=== PATIENT | male | born 1950 | race Caucasian/White ===

== ENCOUNTER 2018-11-05 15:00 | Inpatient (IN) | payer MEDICARE, OTHER ==
[2018-11-05] MEDS ORDERED: NS 0.9% 1000 ML** 1,000 ML IV ONE ×2 (15:07→15:08)
[2018-11-05] MEDS ORDERED: Diltiazem IV push/loading dose 5 MG/ML 5 ML vial (25 mg) IV SLOW PU ONE (15:08)
[2018-11-05] MEDS ORDERED: Diltiazem IV VIAL* 125 MG in NS 0.9% 100 ML* 100 ML IV ONE (15:09)
--- NOTE | 2018-11-05 15:13 | ED ---
Palpitations / Dysrhythmia - HPI Summary HPI Summary: A 68 y/o male brought in by [facility] ambulance presents to [facility] with a chief complaint of palpitations today. The patient started to have CP during a stress test when he flopped over on the treadmill and went into V-Tach and then atrial fibrillation. The patient has stents and is followed by Dr. Blackmon. He says that he has not had atrial fibrillation before but felt like he has nervousness in (his) chest. - History of Current Complaint Chief Complaint: EDDysrhythmPalp Hx Obtained From: Patient, EMS Onset/Duration: Sudden Onset, Lasting Hours, Still Present Timing: Constant Severity Initially: Mild Severity Currently: Mild Character: Fast, Irregular Aggravating: Nothing Alleviating: Nothing Associated Signs & Symptoms: Chest Pain - Allergy/Home Medications Allergies/Adverse Reactions: Allergies Allergy/AdvReac Type Severity Reaction Status Date / Time shellfish derived Allergy Swelling Verified 11/05/18 15:20 Home Medications: Home Medications Aspirin EC TAB* [Ecotrin EC TAB*] 325 mg PO DAILY 11/05/18 [History Confirmed ] Atorvastatin* [Lipitor*] 10 mg PO BEDTIME 11/05/18 [History Confirmed 11/05/18] Melatonin 5 mg PO BEDTIME PRN 11/05/18 [History Confirmed 11/05/18] Pantoprazole TAB * [Protonix TAB*] 40 mg PO DAILY PRN 11/05/18 [History Confirmed 11/05/18] PMH/Surg Hx/FS Hx/Imm Hx Endocrine/Hematology History: Denies: Hx Diabetes Cardiovascular History: Reports: Hx Angina, Hx Coronary Artery Disease, Hx Hypercholesterolemia, Hx Hypertension, Hx Myocardial Infarction Denies: Hx Valvular Heart Disease Respiratory History: Denies: Hx Asthma, Hx Chronic Obstructive Pulmonary Disease (COPD) Musculoskeletal History: Denies: Hx Rheumatoid Arthritis - CHECKING FOR THIS, Hx Osteoporosis Infectious Disease History: No Infectious Disease History: Denies: Traveled Outside the [place] in Last 30 Days - Family History Known Family History: Negative: Cardiac Disease, Hypertension, Diabetes - Social History Substance Use Type: Reports: None Review of Systems Negative: Fever Positive: Palpitations, Chest Pain All Other Systems Reviewed And Are Negative: Yes Physical Exam - Summary Physical Exam Summary: GENERAL: Patient is a well-developed and nourished M who is lying comfortable in the stretcher. Patient is not in any acute respiratory distress. HEAD AND FACE: Normocephalic EYES: PERRLA, EOMI x 2. EARS: Hearing grossly intact. MOUTH: Oropharynx within normal limits. NECK: Supple, trachea is midline, no adenopathy, no JVD, no carotid bruit. CHEST: Symmetric, no tenderness at palpation LUNGS: Clear to auscultation bilaterally. No wheezing or crackles. CVS: Tachycardic, irregularly irregular rate and rhythm, S1 and S2 present, no murmurs or gallops appreciated. ABDOMEN: Soft, non-tender. Bowel sounds are normal. No abnormal abdominal pulsations. EXTREMITIES: Full ROM in all major joints, no edema, no cyanosis or clubbing. NEURO: Alert and oriented x 3. No acute neurological deficits. Speech is normal and follows commands. SKIN: Dry and warm Triage Information Reviewed: Yes Vital Signs On Initial Exam: Initial Vitals Temp Pulse Resp BP Pulse Ox 96.9 F 170 16 136/97 97 11/05/18 15:04 11/05/18 15:04 11/05/18 15:04 11/05/18 15:04 11/05/18 15:04 Vital Signs Reviewed: Yes Diagnostics - Vital Signs Vital Signs Temp Pulse Resp BP Pulse Ox 11/05/18 15:04 96.9 F 170 16 136/97 97 - Laboratory Result Diagrams: 11/05/18 15:34 11/05/18 15:34 Lab Statement: Any lab studies that have been ordered have been reviewed, and results considered in the medical decision making process. - Radiology CXR Radiology Interpretation Completed By: Radiologist Summary of Radiographic Findings: NO ACTIVE CARDIOPULMONARY DISEASE IS NOTED. ED physician has reviewed this imaging report. - EKG 15:03 Cardiac Rate: Other Rate - Atrial fibrillation with RVR at 170 bpm EKG Rhythm: Atrial Fibrillation Summary of EKG Findings: EKG at 15:03 showed Atrial fibrillation with RVR at 170 bpm, regulated ST-T wave changes. Re-Evaluation - Re-Evaluation First Eval Re-Evaluation Time: 15:23 Change: Unchanged Comment: Pt went back into Atrial fibrillation with RVR. Course/Dx - Course Course Of Treatment: A 68 y/o male brought in by [facility] ambulance presents to [facility] with a chief complaint of palpitations today. The patient started to have CP during a stress test when he flopped over on the treadmill and went into V- Tach and then atrial fibrillation. The physical exam revealed that he was tachycardic with an irregularly irregular rate and rhythm. EKG at 15:03 showed Atrial fibrillation with RVR at 170 bpm, regulated ST-T wave changes. CXR impression: NO ACTIVE CARDIOPULMONARY DISEASE IS NOTED. In the ED course the patient was given Diltiazem IV and sodium chloride IV. Blood work and chemistries obtained. Lactic acid of 2.1 at 15:34. The patient will be admitted. Case discussed with hospitalist, Dr. Smallwood. I discussed results with patient. The patient agrees with this plan. - Diagnoses Provider Diagnoses: Atrial fibrillation with RVR - Physician Notifications Discussed Care Of Patient With: Meredith Smallwood Time Discussed With Above Provider: 15:16 Instructed by Provider To: Admit As Inpatient - Critical Care Time Critical Care Time: 30-74 min Discharge - Sign-Out/Discharge Documenting (check all that apply): Patient Departure - admit Patient Received Moderate/Deep Sedation with Procedure: No - Discharge Plan Condition: Fair Disposition: ADMITTED TO [facility] - Billing Disposition and Condition Condition: FAIR Disposition: Admitted to [facility] - Attestation Statements Document Initiated by Scribe: Yes Documenting Scribe: Familia Pires Provider For Whom Charlotte is Documenting (Include Credential): Yuniel Farooq MD Scribe Attestation: IFamilia, scribed for Yuniel Farooq MD on 11/05/18 at 1756. Scribe Documentation Reviewed: Yes Provider Attestation: The documentation as recorded by the Familia arzola accurately reflects the service I personally performed and the decisions made by me, Ekta Farooq MD Status of Scribe Document: Viewed
[2018-11-05 15:44] LABS: ABS Eosinophils 0.3 10^3/ul (0-0.6); ABS Lymphocytes 1.8 10^3/ul (1.0-4.8); ABS Neutrophils 5.7 10^3/ul (1.5-7.7); Eosinophil % 3.5 %; Hematocrit 36 % (42-52); Lymphocyte % 20.7 %; Mean Corpuscular HGB Conc 33 g/dL (31-36); Mean Corpuscular Hemoglobin 32 pg (27-31); Mean Corpuscular Volume 96 fL (80-94); Mean Platelet Volume 8.6 fL (7.4-10.4); Nucleated Red Blood Cells % 0.1; Platelet Count 191 10^3/uL (150-450); Red Blood Count 3.73 10^6 /uL (4.18-5.48); Red Cell Distribution Width 13 % (10-15); White Blood Count 8.9 10^3/uL (3.5-10.8)
[2018-11-05 15:52] LABS: Activated Partial Thrombo Time 31.5 seconds (26.0-38.0); INR 1.09 (0.82-1.09)
[2018-11-05] MEDS ORDERED: Diltiazem IV BAG* D5W Premix 125 MG/125 ML BAG IV ONE (15:56)
[2018-11-05 16:04] LABS: ALT 15 U/L (7-52); AST 24 U/L (13-39); Albumin/Globulin Ratio 1.1 (1-3); Alkaline Phosphatase 59 U/L (34-104); Anion Gap 8 mmol/L (2-11); BUN/Creatinine Ratio 20.3 (8-20); Blood Urea Nitrogen 16 mg/dL (6-24); CO2 Carbon Dioxide 25 mmol/L (22-32); Calcium 8.9 mg/dL (8.6-10.3); Chloride 107 mmol/L (101-111); EGFR African American 117.7 (>60); EGFR Non-African American 97.2 (>60); Globulin 3.7 g/dL (2-4); Glucose 104 mg/dL (70-100); Potassium 4.1 mmol/L (3.5-5.0); Sodium 140 mmol/L (135-145); Total Protein 7.7 g/dL (6.4-8.9)
[2018-11-05] MEDS ORDERED: Metoprolol Tartrate TAB* 25 MG PO ONE (17:11)
[2018-11-05] MEDS ORDERED: Acetaminophen TAB* 325 MG PO PRN (17:14)
[2018-11-05] MEDS ORDERED: Heparin DRIP 25,000 UNITS(*) 25,000 UNITS/500 ML BAG IV SCH (17:30)
[2018-11-05] MEDS ORDERED: Potassium Chlor TAB* 10 MEQ TAB.ER PO ONE (17:41)
[2018-11-05] MEDS ORDERED: Pantoprazole TAB * 40 MG TAB PO PRN (17:52)
[2018-11-05] MEDS ORDERED: Melatonin 3 MG TAB PO PRN (17:52)
[2018-11-05] MEDS ORDERED: Heparin VIAL(*) 5000 UNITS/ML VIAL (FIVE THOUSAND) IV SCH (18:00)
--- NOTE | 2018-11-05 18:25 | HP ---
HISTORY AND PHYSICAL: ADDENDUM: FAMILY HISTORY: Father had multiple MIs. Paternal grandfather at the age of 60, unsure of cause of . Mother is from either [place] or [place]. Maternal grandfather had cancer. Maternal grandmother had diabetes. SOCIAL HISTORY: The patient does not smoke, he never has. He drinks 6 to 10 alcoholic beverages per week. He admits to occasional marijuana use. He is retired from [employer]. In his spare time, he likes to golf, travel, and hike. He is , with 3 children. He lives at home with his . In the event that he is unable to make his own medical decisions, he has appointed his , Monica Vann, to be his surrogate decision maker. REVIEW OF SYSTEMS: A 10-point review of systems has been performed and all the pertinent positives and negatives are in the HPI. All other systems are negative. PHYSICAL EXAMINATION GENERAL: Mr. Vann is a well-developed, well-nourished, healthy-appearing 68 - year-old male, who is sitting up in bed. He is in no acute distress. He is soft- spoken, cooperative, appropriate. VITAL SIGNS: Temperature 96.9 temporal, heart rate 145, respiratory rate 23, oxygen saturation 95% on room air, blood pressure 137/89. HEENT: Visual erickson grossly intact. PERRL. EOMI. Nonicteric sclerae. Hearing grossly intact. Oral mucous membranes are moist. There are no lesions. RESPIRATORY: Symmetrical chest expansion without use of accessory muscles. Lungs clear to auscultation bilaterally without rhonchi, wheezes, or rales. There is no digital clubbing or cyanosis. CARDIOVASCULAR: Tachycardic, irregular rhythm. S1, S2 present without murmurs , rubs, or gallops. There is no JVD. There is no peripheral edema. Radial and pedal pulses are palpable. ABDOMEN: Bowel sounds noted in all quadrants. The abdomen is soft without tenderness to palpation. MUSCULOSKELETAL: Full range of motion without pain or deformities. NEURO: The patient is awake. He is alert and oriented x3. Cranial nerves grossly intact. He is able to move all of his extremities with motor strength of 5/5 in the upper and lower extremities bilaterally. DIAGNOSTIC STUDIES/LAB DATA: HGB 12, HCT 36, MCV 96. Glucose 104, lactic acid 2.1, magnesium 2.0. Troponin 0.00. ECG: Possible atrial fibrillation, rate of 170, ventricular tachycardia. Chest x-ray, impression: No active cardiopulmonary disease is noted. ASSESSMENT AND PLAN: Mr. Vann is a 68-year-old male with a past medical history of coronary artery disease with stenting in 2011, angina, hypertension, hyperlipidemia, who presented to the ER today after an abnormal stress test and arrhythmia. The patient will be admitted inpatient for: 1. Stress test with ischemic changes. The patient is here from Dr. Blackmon's office after a stress test revealed 2 to [address] depressions inferolaterally. After stress test was completed, he went into atrial fibrillation with rapid ventricular response. Dr. Nagel has been consulted and plans for catheterization in the afternoon. He will be n.p.o. after breakfast. Cardiology has been consulted, Dr. Estes notified. We will continue serial troponins. Heparin drip has been ordered. The patient will remain on diltiazem drip, which will be titrated to heart rate. The patient has been given Lopressor p.o. 25 now and we will continue Lopressor p.o. 25 b.i.d. in hopes of titrating off diltiazem shortly. 2. Arrhythmia. The patient has EKG changes suggestive of atrial fibrillation with ventricular tachycardia. The patient has received diltiazem IV 15, which has decreased his heart rate some, but he remains tachycardic. We will continue diltiazem drip. Lopressor 25 has been given now. Continue to monitor for need for additional rate controlling agents. 3. Coronary artery disease. Continue aspirin 325 p.o. daily. Plan for cardiac catheterization tomorrow. 4. Hyperlipidemia. Continue atorvastatin. 5. FEN: Heart-healthy diet until breakfast, n.p.o. after breakfast. 6. DVT prophylaxis: According to the DVT Risk Assessment, the patient scores 2 , placing him at moderate risk. He will be started on heparin drip. 7. Code status: Full code. TIME SPENT: Approximately 60 minutes was spent on this admission, greater than half that time was spent with the patient obtaining history, performing physical , and reviewing the plan of care. The case has been reviewed with my attending, Dr. Ernst, who is in agreement with the plan of care. JAY LARIOS, SHIRA [id number]/[facility] #: [id number] [facility]URN MEDICAL CENTERDarío
--- NOTE | 2018-11-05 18:41 | HP ---
CONTINUATION ADDENDUM NOW INCLUDED ON THIS REPORT HISTORY AND PHYSICAL: DATE OF ADMISSION: 11/05/18 PRIMARY CARE PROVIDER: Dr. Borrego. PROVIDER RELATIONS MANAGER: Dr. Blackmon. ATTENDING PHYSICIAN: Dr. Ernst * (dictated by SHIRA Castillo). CHIEF COMPLAINT: "I went to my education faculty member for a stress test and failed." HISTORY OF PRESENT ILLNESS: The patient is a 68-year-old male with a past medical history of CAD with stenting in 2011, hypertension, hyperlipidemia, mitral regurgitation who presented today at the suggestion of his education faculty member, Dr. Blackmon after he developed ventricular tachycardia after stress testing today. Stress testing revealed 2 to [address] depressions inferolaterally. The patient notes that he was on the treadmill during his stress test and he felt okay. He was then laid down on the table after his stress test and he started to have palpitations. He notes that they lasted less than 10 minutes, but then he had a flutter/nervous feeling in his chest for the following hour. Cardiology reports wide complex tachycardia suggestive of rapid ventricular tachycardia after stress test was done. His stress test showed stress-induced changes with ischemic EKG changes, ventricular fibrillation, atrial fibrillation. The patient denies chest pain, diaphoresis, or shortness of breath at that time. He denies recent history of lower extremity edema. The patient admits to some lightheadedness after the stress test, but denies dizziness, presyncope/syncope. He notes that he has had an upper respiratory infection with fevers and diaphoresis for approximately 2 months, but it has been improving over the last 1 month and he has had no recent fevers. He admits to diarrhea for approximately 1 month. He describes his stools as loose without hematochezia with occasional dark stools. He notes that he has loose stools 1 to 3 times per day. He denies abdominal pain, nausea , vomiting. He denies headache or vision changes. While in the emergency department, the patient received a full workup, which included lab work revealing a macrocytic anemia, a slight lactic acidosis, and troponin of 0.00. EKG shows possible AFib, ventricular tachycardia, rate of 170. Chest x-ray without gross abnormalities. The patient was given 15 mg IV diltiazem push. He was then started on diltiazem drip, which is continued at admission. He was also given 2 L normal saline bolus. The hospitalist team was asked to evaluate the patient for admission. PAST MEDICAL HISTORY: 1. Coronary artery disease with stent x1 in 2011. 2. Hypertension. 3. Hyperlipidemia. 4. Angina. 5. Mitral regurgitation. PAST SURGICAL HISTORY: 1. The patient had both knees x2. 2. Sinus surgery. 3. Basal cell carcinoma removed from chest, right arm, left ear. HOME MEDICATIONS: 1. Aspirin 325 mg p.o. daily. 2. Atorvastatin 10 mg p.o. at bedtime. 3. Melatonin 5 mg p.o. at bedtime p.r.n. sleep. 4. Pantoprazole 40 mg p.o. daily p.r.n. indigestion. DRUG ALLERGIES: SHELLFISH, swelling. CONTINUATION ADDENDUM: FAMILY HISTORY: Father had multiple MIs. Paternal grandfather at the age of 60, unsure of cause of . Mother is from either [place] or [place]. Maternal grandfather had cancer. Maternal grandmother had diabetes. SOCIAL HISTORY: The patient does not smoke, he never has. He drinks 6 to 10 alcoholic beverages per week. He admits to occasional marijuana use. He is retired from [employer]. In his spare time, he likes to golf, travel, and hike. He is , with 3 children. He lives at home with his . In the event that he is unable to make his own medical decisions, he has appointed his , Monica Vann, to be his surrogate decision maker. REVIEW OF SYSTEMS: A 10-point review of systems has been performed and all the pertinent positives and negatives are in the HPI. All other systems are negative. PHYSICAL EXAMINATION GENERAL: Mr. Vann is a well-developed, well-nourished, healthy-appearing 68 - year-old male, who is sitting up in bed. He is in no acute distress. He is soft- spoken, cooperative, appropriate. VITAL SIGNS: Temperature 96.9 temporal, heart rate 145, respiratory rate 23, oxygen saturation 95% on room air, blood pressure 137/89. HEENT: Visual erickson grossly intact. PERRL. EOMI. Nonicteric sclerae. Hearing grossly intact. Oral mucous membranes are moist. There are no lesions. RESPIRATORY: Symmetrical chest expansion without use of accessory muscles. Lungs clear to auscultation bilaterally without rhonchi, wheezes, or rales. There is no digital clubbing or cyanosis. CARDIOVASCULAR: Tachycardic, irregular rhythm. S1, S2 present without murmurs , rubs, or gallops. There is no JVD. There is no peripheral edema. Radial and pedal pulses are palpable. ABDOMEN: Bowel sounds noted in all quadrants. The abdomen is soft without tenderness to palpation. MUSCULOSKELETAL: Full range of motion without pain or deformities. NEURO: The patient is awake. He is alert and oriented x3. Cranial nerves grossly intact. He is able to move all of his extremities with motor strength of 5/5 in the upper and lower extremities bilaterally. DIAGNOSTIC STUDIES/LAB DATA: HGB 12, HCT 36, MCV 96. Glucose 104, lactic acid 2.1, magnesium 2.0. Troponin 0.00. ECG: Possible atrial fibrillation, rate of 170, ventricular tachycardia. Chest x-ray, impression: No active cardiopulmonary disease is noted. ASSESSMENT AND PLAN: Mr. Vann is a 68-year-old male with a past medical history of coronary artery disease with stenting in 2011, angina, hypertension, hyperlipidemia, who presented to the ER today after an abnormal stress test and arrhythmia. The patient will be admitted inpatient for: 1. Stress test with ischemic changes. The patient is here from Dr. Blackmon's office after a stress test revealed 2 to [address] depressions inferolaterally. After stress test was completed, he went into atrial fibrillation with rapid ventricular response. Dr. Nagel has been consulted and plans for catheterization in the afternoon. He will be n.p.o. after breakfast. Cardiology has been consulted, Dr. Estes notified. We will continue serial troponins. Heparin drip has been ordered. The patient will remain on diltiazem drip, which will be titrated to heart rate. The patient has been given Lopressor p.o. 25 now and we will continue Lopressor p.o. 25 b.i.d. in hopes of titrating off diltiazem shortly. 2. Arrhythmia. The patient has EKG changes suggestive of atrial fibrillation with ventricular tachycardia. The patient has received diltiazem IV 15, which has decreased his heart rate some, but he remains tachycardic. We will continue diltiazem drip. Lopressor 25 has been given now. Continue to monitor for need for additional rate controlling agents. 3. Coronary artery disease. Continue aspirin 325 p.o. daily. Plan for cardiac catheterization tomorrow. 4. Hyperlipidemia. Continue atorvastatin. 5. FEN: Heart-healthy diet until breakfast, n.p.o. after breakfast. 6. DVT prophylaxis: According to the DVT Risk Assessment, the patient scores 2 , placing him at moderate risk. He will be started on heparin drip. 7. Code status: Full code. TIME SPENT: Approximately 60 minutes was spent on this admission, greater than half that time was spent with the patient obtaining history, performing physical , and reviewing the plan of care. The case has been reviewed with my attending, Dr. Ernst, who is in agreement with the plan of care. SHIRA HORNE [id number]/[facility] #: [id number]/[facility] #: [id number] [place]
[2018-11-05] MEDS ORDERED: Diltiazem IV BAG* D5W Premix 125 MG/125 ML BAG IV SCH (19:00)
[2018-11-05 19:12] LABS: % Iron Saturation 25 % (15-55); Iron 86 ug/dL (50-212); Total Iron Binding Capacity 346 mcg/dL (250-450); Transferrin 247 mg/dL (203-362)
[2018-11-05 19:32] LABS: Ferritin 103.2 ng/mL (24-336)
[2018-11-05 19:34] LABS: Troponin I 0.01 ng/mL (<0.04)
[2018-11-05 19:36] LABS: EGFR African American 133.1 (>60)
[2018-11-05 19:36] LABS: Folate > 20.00 ng/mL (>3.99)
[2018-11-05] MEDS: Atorvastatin* 10 MG TAB PO SCH (20:27)
[2018-11-05 20:56] LABS: TSH (Thyroid Stimulating Horm) 2.44 mcIU/mL (0.34-5.60)
--- NOTE | 2018-11-05 21:52 | CONS ---
CC: Dr. David Borrego; Dr. Hal Blackmon * CARDIOLOGY CONSULTATION: DATE OF CONSULT: 11/05/18 HOSPITALIST: Dr. David Borrego. REASON FOR CONSULT: Ventricular tachycardia. CHIEF COMPLAINT: The patient's chief complaint has been diarrhea and according to his , greater than usual fatigue golfing. HISTORY OF PRESENT ILLNESS: Mr. Vann is a very nice 68-year-old gentleman with known atherosclerotic heart disease, followed by Dr. Hal Blackmon. The patient had been seen for routine appointment in September of this year and at that time, he had a PVC and some nonspecific T-wave changes and a stress echo was ordered, which was scheduled for today. The patient underwent stress testing today, felt well, was able to walk 8 minutes on a standard Dejan protocol achieving 10 METs of workload. He did not have chest pain, but was winded. With testing, he developed significant ST changes and while lying down, he developed a run of monomorphic ventricular tachycardia, 220 beats a minute. The patient tells me that while he was on the treadmill, he felt fine, but while lying down with the VT he felt marked thumping in the chest. When he went out of the ventricular tachycardia, he was in atrial fibrillation with a rapid ventricular response. Dr. Blackmon reported that the postexercise images with V/AFib showed akinesis and dyskinesis of the septum and hypokinesis of the anterior wall and his PA pressure in recovery was elevated to 70 mmHg. Currently when I saw the patient, in the presence of his , he is in atrial fibrillation and aware of the flip-flopping in the heart and this is similar to symptoms he had prior to his stent in the past, but has not had them in several years. The patient denies chest pain, orthopnea, PND, neck, arm, jaw pain currently. PAST MEDICAL HISTORY: The patient has a past medical history of: 1. Coronary artery disease (cardiac catheterization in March 2012 showed 60 % to 70% LAD occlusion for which he underwent stenting, 20% to 30% occlusion in the PDA of the circumflex, and a 30% occlusion of the right coronary artery). 2. Mitral insufficiency. 3. Dyslipidemia. 4. Reflux. 5. Recent lower respiratory illness requiring antibiotics. PAST SURGICAL HISTORY: Includes knee surgery and Mohs procedure. MEDICATIONS: Outpatient medications at the time of admission included: 1. Melatonin 5 mg p.r.n. 2. Atorvastatin 10 mg q.h.s. 3. Protonix 40 mg a day. 4. Aspirin 162 mg a day. Recently discontinued medications include: Augmentin. ALLERGIES: He has no known drug allergies, but is allergic to [employer]ODUCTS. FAMILY HISTORY: Positive for heart disease in his father's side of the family. SOCIAL HISTORY: The patient is with supportive . He never smoked. Occasional alcohol. No history of recreational drug use. Golfs and exercises regularly. REVIEW OF SYSTEMS: A 10-point review of systems was done. It is significant for developing an upper respiratory tract infection in August when he was traveling. By September, it settled into his chest where he was coughing thick purulent sputum and was treated with Augmentin. He states this is better. He felt very wiped out with his illness, but he is now left with diarrhea. He had some knee problems this week and did take several nonsteroidal pills earlier this week. With negative orthopnea, PND, his said he comes home from golf feeling much more tired than he had in the past. All other review of systems is negative. He denies ever having had the thumping in his heart that he felt was a V-tach and he does not think he has had fluttering sensation he feels with the AFib since his stent in 2011. Review of systems was positive for snoring and apnea symptoms based on his 's history, although the patient denies awareness of this. PHYSICAL EXAM: The patient is 6 feet 3 inches, weighs 185 pounds with a BMI of 23. Vital Signs: Blood pressure 125/63, he was in AFib with a ventricular rate of 125 beats a minute, respiratory rate is 25, he is afebrile. General Appearance: Lean, fit- appearing, somewhat older gentleman, lying at 40 degrees, his was present for most of the exam and he is in no distress, chatting normally. Psychologically, pleasant and cooperative. Neurologically, awake, alert, oriented to person, place, and time. Grossly normal sensory and motor function in the upper and lower extremities on bed exam. Skin: Warm, dry, bronson. No appreciable cyanosis or rashes. HEENT: Pupils are equal and round. Mucous membranes are moist. Neck without increased JVP or thyromegaly. Good carotid pulses without audible bruits. Breath sounds were clear. Good effort. No wheezes, rales, or rhonchi. Coronary: S1, S2. Irregularly irregular without appreciable murmurs. Abdomen: Flat, nontender. No hepatomegaly. Lower extremities were free of edema and warm. DIAGNOSTIC STUDIES/LAB DATA: Stress echo from today reviewed personally and Dr. Blackmon's report is reviewed, 3+ mm horizontal ST depression with walking, monomorphic ventricular tachycardia in early recovery followed by AFib and persistent ST changes. I have not seen the echo portions, but anterior apical wall abnormality post exercise was described and elevation in PA pressure to 70 mmHg is described. 12-lead ECG in the emergency room showed atrial fibrillation with a ventricular rate of 170 beats a minute, QRS axis +60, normal intraventricular conduction times, [address] depression in the inferior lateral leads. Chest x-ray showed no active pulmonary disease. Labs showed white count 8.9, hematocrit 36, mean cell volume 96, platelets 191, mild increase in monos. INR 1.09, PTT 31.5. Sodium 140, potassium 4.1, chloride 107, bicarb 25, BUN 16, creatinine 0.79, glucose 104, lactic acid 2.1, magnesium 2.0. Normal transaminases. Troponin #1 0.00. BNP 153. Lipids from 11/06/17 showed total cholesterol 131, triglycerides 87, HDL cholesterol 47, LDL cholesterol 66. Echocardiogram from 11/05/17 showed an ejection fraction of 55% to 60% with abnormal diastolic filling, left atrial enlargement, aortic valve sclerosis with trace insufficiency, [id number] mitral insufficiency, [id number] tricuspid insufficiency, mild dilatation of the ascending aorta. IMPRESSION: In summary, Nikolas Vann is a very nice 68-year-old gentleman, who underwent a treadmill stress test today complicated by long run of monomorphic ventricular tachycardia while stepping off the treadmill followed by atrial fibrillation. His stress test was suggestive of ischemia prior to the ventricular tachycardia with significant ST depression and he had anterior apical wall motion abnormalities, in atrial fibrillation post ventricular tachycardia and exercise. For the patient's abnormal stress test including ventricular tachycardia, the recommendation is to undergo cardiac catheterization, which is my understanding will be done in the morning. For the patient's atrial fibrillation, he continues to go in and out of atrial fibrillation in the emergency room and he has a CHADS score of 1 (hypertension) , I am recommending a heparin drip in the short term. I want to give beta na orally to try to rate control as this will also help with ventricular tachycardia and a diltiazem drip, which will be titrated to his rate. I would like to give him metoprolol as possible as little diltiazem as possible. I am giving him extra potassium in case this decreases his ventricular ectopy and helps him maintain sinus rhythm, as when I was examining him, he had gone in and out of sinus rhythm approximately 4 times. For followup of items in review of systems, with the patient having diarrhea post Augmentin, it could potentially have caused Clostridium difficile or another overgrowth, although I think this should be looked into and we will defer to the hospitalist on how to manage, but it could put him at risk for electrolyte disturbances and dysrhythmias. For the patient's arthritic pain, I think for now, he needs to avoid any nonsteroidals as this can lead to fluid retention, increased blood pressure, increased MR and PA pressures in addition to promotion of atherosclerotic plaque. We will look into his mild macrocytic anemia to ensure it is not a marker of another underlying process. Further recommendations will be made pending the results of his cardiac catheterization. Thank you for allowing me to assist in this nice gentleman's care. [id number]/[facility] #: [id number] [place]
[2018-11-06 05:17] LABS: ABS Eosinophils 0.4 10^3/ul (0-0.6); ABS Lymphocytes 2.2 10^3/ul (1.0-4.8); ABS Neutrophils 4.2 10^3/ul (1.5-7.7); Eosinophil % 4.9 %; Hematocrit 31 % (42-52); Hemoglobin 10.7 g/dL (14.0-18.0); Lymphocyte % 28.5 %; Mean Corpuscular HGB Conc 35 g/dL (31-36); Mean Corpuscular Hemoglobin 33 pg (27-31); Mean Corpuscular Volume 95 fL (80-94); Nucleated Red Blood Cells % 0.1; Platelet Count 196 10^3/uL (150-450); Red Blood Count 3.24 10^6 /uL (4.18-5.48); Red Cell Distribution Width 14 % (10-15); White Blood Count 7.8 10^3/uL (3.5-10.8)
[2018-11-06 05:32] LABS: Calcium 8.4 mg/dL (8.6-10.3); EGFR African American 112.7 (>60); EGFR Non-African American 93.2 (>60); Potassium 3.7 mmol/L (3.5-5.0)
[2018-11-06] MEDS ORDERED: Potassium Chlor TAB* 20 MEQ TAB.ER PO ONE (08:29)
[2018-11-06] MEDS ORDERED: Metoprolol Tartrate TAB* 25 MG PO SCH (09:00)
[2018-11-06] MEDS: Aspirin EC TAB* 325 MG PO SCH (09:13)
--- NOTE | 2018-11-06 09:32 | PN ---
<Meagan Rolon - Last Filed: 11/06/18 09:27> Subjective Date of Service: 11/06/18 - abnormal stress echo, NSVT, PAF with RVR Interval History: Patient was admitted from our office yesterday after undergoing stress echo which per report patient had 2-3mm horizontal ST depressions inferolaterally. Immediate after stopping exercise4 and laying down for stress echo imaging he developed wide complex VT, he converted after 10-20 seconds to AF with RVR and persistant ST depression. echo imaging revealed LVEF after exercise 45%, akinesis dyskinesis of septum and hypokinesis of the anterior wall. He denies chest pain, has not had a sensation of heart racing or irregularity since yesterday Medications Active Medications: Acetaminophen (Tylenol Tab*) 650 mg PO Q4H PRN PRN Reason: FEVER/PAIN Aspirin (Ecotrin Ec Tab*) 325 mg PO DAILY [facility] Last Admin: 11/06/18 09:13 Dose: 325 mg Atorvastatin Calcium (Lipitor*) 10 mg PO BEDTIME ANYA Last Admin: 11/05/18 20:27 Dose: 10 mg Heparin Sodium (Porcine) (Heparin Vial(*)) 0 units IV .PER PROTOCOL ANYA Heparin Sodium/Dextrose (Heparin Drip 25,000 Units(*)) 25,000 units in 500 mls @ 0 mls/hr IV PER RATE ANYA; Protocol Stop: 11/06/18 12:00 Diltiazem/Dextrose (Cardizem Iv D5w Bag* Premix) 125 mg in 125 mls @ 10 mls/hr IV .INITIAL RATE ANYA; Protocol Sodium Chloride (Ns 0.9% 1000 Ml) 1,000 mls @ 100 mls/hr IV .per rate ANYA Melatonin (Melatonin) 3 mg PO BEDTIME PRN PRN Reason: SLEEP Last Admin: 11/06/18 01:01 Dose: 3 mg Metoprolol Tartrate (Lopressor Tab*) 25 mg PO BID ANYA Last Admin: 11/06/18 09:13 Dose: 25 mg Pantoprazole Sodium (Protonix Tab*) 40 mg PO DAILY PRN PRN Reason: HEARTBURN Objective Vital Signs: Temp Pulse Resp BP Pulse Ox 97.8 F 67 18 134/70 97 11/06/18 07:23 11/06/18 09:00 11/06/18 09:00 11/06/18 09:00 11/06/18 09:00 Oxygen Devices in Use Now: None Appearance: Lying in bed, A+O x3 Ears/Nose/Mouth/Throat: NL Teeth, Lips, Gums, Clear Oropharnyx, Mucous Membranes Moist Neck: NL Appearance and Movements; NL JVP Respiratory: Symmetrical Chest Expansion and Respiratory Effort Cardiovascular: NL Sounds; No Murmurs; No JVD, No Edema Abdominal: NL Sounds; No Tenderness; No Distention Extremities: No Edema Neurological: Alert and Oriented x 3 Lines/Tubes/Other Access: Clean, Dry and Intact Peripheral IV Laboratory Results: 11/06/18 05:05 11/06/18 05:05 INR (Anticoag Therapy) 1.09 (0.82-1.09) 11/05/18 15:34 APTT 53.3 seconds (26.0-38.0) H 11/06/18 07:05 Total Bilirubin 0.50 mg/dL (0.2-1.0) 11/05/18 15:34 AST 24 U/L (13-39) 11/05/18 15:34 ALT 15 U/L (7-52) 11/05/18 15:34 Alkaline Phosphatase 59 U/L (34-104) 11/05/18 15:34 B-Natriuretic Peptide 153 pg/mL (<=100) H 11/05/18 15:34 Total Protein 7.7 g/dL (6.4-8.9) 11/05/18 15:34 Albumin 4.0 g/dL (3.2-5.2) 11/05/18 15:34 Globulin 3.7 g/dL (2-4) 11/05/18 15:34 Albumin/Globulin Ratio 1.1 (1-3) 11/05/18 15:34 Triglycerides 74 mg/dL 11/06/18 05:05 Cholesterol 105 mg/dL 11/06/18 05:05 LDL Cholesterol 53 mg/dL 11/06/18 05:05 HDL Cholesterol 37.0 mg/dL 11/06/18 05:05 TSH 2.44 mcIU/mL (0.34-5.60) 11/05/18 15:34 11/05/18 11/05/18 11/05/18 15:34 18:56 21:43 Troponin I 0.00 0.01 0.02 Laboratory Results - last hr 11/05/18 11/05/18 11/05/18 15:34 15:34 15:34 WBC 8.9 RBC 3.73 L Hgb 12.0 L Hct 36 L MCV 96 H MCH 32 H MCHC 33 RDW 13 Plt Count 191 MPV 8.6 Neut % (Auto) 64.6 Lymph % (Auto) 20.7 Dyer % (Auto) 10.9 Eos % (Auto) 3.5 Baso % (Auto) 0.3 Absolute Neuts (auto) 5.7 Absolute Lymphs (auto) 1.8 Absolute Monos (auto) 1.0 H Absolute Eos (auto) 0.3 Absolute Basos (auto) 0.0 Absolute Nucleated RBC 0.0 Nucleated RBC % 0.1 INR (Anticoag Therapy) 1.09 APTT 31.5 Sodium 140 Potassium 4.1 Chloride 107 Carbon Dioxide 25 Anion Gap 8 BUN 16 Creatinine 0.79 Est GFR ( Amer) 117.7 Est GFR (Non-Af Amer) 97.2 BUN/Creatinine Ratio 20.3 H Glucose 104 H Hemoglobin A1c Lactic Acid Calcium 8.9 Magnesium 2.0 Iron 86 TIBC 346 % Saturation 25 Unsat Iron Binding < 331 Transferrin 247 Ferritin 103.2 Total Bilirubin 0.50 AST 24 ALT 15 Alkaline Phosphatase 59 Troponin I 0.00 B-Natriuretic Peptide Total Protein 7.7 Albumin 4.0 Globulin 3.7 Albumin/Globulin Ratio 1.1 Triglycerides Cholesterol LDL Cholesterol HDL Cholesterol Vitamin B12 249 Folate > 20.00 TSH 2.44 11/05/18 11/05/18 11/05/18 15:34 15:34 18:56 WBC RBC Hgb Hct MCV MCH MCHC RDW Plt Count MPV Neut % (Auto) Lymph % (Auto) Dyer % (Auto) Eos % (Auto) Baso % (Auto) Absolute Neuts (auto) Absolute Lymphs (auto) Absolute Monos (auto) Absolute Eos (auto) Absolute Basos (auto) Absolute Nucleated RBC Nucleated RBC % INR (Anticoag Therapy) APTT Sodium Potassium Chloride Carbon Dioxide Anion Gap BUN 12 Creatinine 0.71 Est GFR ( Amer) 133.1 Est GFR (Non-Af Amer) 110.0 BUN/Creatinine Ratio Glucose Hemoglobin A1c Lactic Acid 2.1 H* Calcium Magnesium Iron TIBC % Saturation Unsat Iron Binding Transferrin Ferritin Total Bilirubin AST ALT Alkaline Phosphatase Troponin I 0.01 B-Natriuretic Peptide 153 H Total Protein Albumin Globulin Albumin/Globulin Ratio Triglycerides Cholesterol LDL Cholesterol HDL Cholesterol Vitamin B12 Folate TSH 11/05/18 11/05/18 11/06/18 18:56 21:43 01:00 WBC RBC Hgb Hct MCV MCH MCHC RDW Plt Count MPV Neut % (Auto) Lymph % (Auto) Dyer % (Auto) Eos % (Auto) Baso % (Auto) Absolute Neuts (auto) Absolute Lymphs (auto) Absolute Monos (auto) Absolute Eos (auto) Absolute Basos (auto) Absolute Nucleated RBC Nucleated RBC % INR (Anticoag Therapy) APTT 29.9 61.1 H Sodium Potassium Chloride Carbon Dioxide Anion Gap BUN Creatinine Est GFR ( Amer) Est GFR (Non-Af Amer) BUN/Creatinine Ratio Glucose Hemoglobin A1c Lactic Acid Calcium Magnesium Iron TIBC % Saturation Unsat Iron Binding Transferrin Ferritin Total Bilirubin AST ALT Alkaline Phosphatase Troponin I 0.02 B-Natriuretic Peptide Total Protein Albumin Globulin Albumin/Globulin Ratio Triglycerides Cholesterol LDL Cholesterol HDL Cholesterol Vitamin B12 Folate [facility] 11/06/18 11/06/18 11/06/18 05:05 05:05 05:05 WBC 7.8 RBC 3.24 L Hgb 10.7 L Hct 31 L MCV 95 H MCH 33 H MCHC 35 RDW 14 Plt Count 196 MPV 9.0 Neut % (Auto) 53.5 Lymph % (Auto) 28.5 Dyer % (Auto) 12.6 Eos % (Auto) 4.9 Baso % (Auto) 0.5 Absolute Neuts (auto) 4.2 Absolute Lymphs (auto) 2.2 Absolute Monos (auto) 1.0 H Absolute Eos (auto) 0.4 Absolute Basos (auto) 0.0 Absolute Nucleated RBC 0.0 Nucleated RBC % 0.1 INR (Anticoag Therapy) APTT Sodium 139 Potassium 3.7 Chloride 108 Carbon Dioxide 27 Anion Gap 4 BUN 18 Creatinine 0.82 Est GFR ( Amer) 112.7 Est GFR (Non-Af Amer) 93.2 BUN/Creatinine Ratio 22.0 H Glucose 108 H Hemoglobin A1c 6.0 H Lactic Acid Calcium 8.4 L Magnesium 2.0 Iron TIBC % Saturation Unsat Iron Binding Transferrin Ferritin Total Bilirubin AST ALT Alkaline Phosphatase Troponin I B-Natriuretic Peptide Total Protein Albumin Globulin Albumin/Globulin Ratio Triglycerides 74 Cholesterol 105 LDL Cholesterol 53 HDL Cholesterol 37.0 Vitamin B12 Folate TSH 11/06/18 07:05 WBC RBC Hgb Hct MCV MCH MCHC RDW Plt Count MPV Neut % (Auto) Lymph % (Auto) Dyer % (Auto) Eos % (Auto) Baso % (Auto) Absolute Neuts (auto) Absolute Lymphs (auto) Absolute Monos (auto) Absolute Eos (auto) Absolute Basos (auto) Absolute Nucleated RBC Nucleated RBC % INR (Anticoag Therapy) APTT 53.3 H Sodium Potassium Chloride Carbon Dioxide Anion Gap BUN Creatinine Est GFR ( Amer) Est GFR (Non-Af Amer) BUN/Creatinine Ratio Glucose Hemoglobin A1c Lactic Acid Calcium Magnesium Iron TIBC % Saturation Unsat Iron Binding Transferrin Ferritin Total Bilirubin AST ALT Alkaline Phosphatase Troponin I B-Natriuretic Peptide Total Protein Albumin Globulin Albumin/Globulin Ratio Triglycerides Cholesterol LDL Cholesterol HDL Cholesterol Vitamin B12 Folate TSH Diagnostic Imaging: Per stress echo report 11/05/2018; post exercise echo revealed normal wall motion at rest and what appeared to be akinesis dyskinesis of the septum and hypokinesis of the anterior wall and a reduction in his EF from the baseline of 55-60% down to 45%. Recovery PASP was elevated at 70mmhg. wall motion was difficult to evaluate due to AF with RVR. EKG Data: ECG; Sinus bradycardia rate 59. no apparent ischemic changes Assessment/Plan #1 Abnormal stress echo with ischemic ECG changes and reduction in LVEF with VT and PAF with RVR; Here for C. Reports angioedema with ingestion of shrimp. 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 Proceed reviewed with patient including risk /benefits that include but are not limited to bleeding, infection, vessel damage, CVA, Mi , requirment of DAPT and possible referral for CABG. Patient is agreeable to proceed. Consent to be obtained by Dr. Nagel. His is on ASA, statin and bblocker therapy. Will address antiplatlet therapy post LHC. #2 newly diagnosed PAF; Currently in NSR on IV heparin and Cardizem therapy. Reports being told he snores at night. Needs eventual sleep study. TSH was normal. Will address OAC post cath. Chads Vasc 3. Denies h/o bleeding events. #3 Macrocytic anemia. TSH, Folate and Vit B12 are normal . He reports consuming on average 1 alcohol beverage daily to every other day. #4 Post stress echo monomorphic VT; no reoccurrence. K+ to be replaced today. Continue to monitor on telemetry. Attending: Hal Blackmon <Hal Blackmon - Last Filed: 11/06/18 17:44> Medications Active Medications: Acetaminophen (Tylenol Tab*) 650 mg PO Q4H PRN PRN Reason: FEVER/PAIN Last Admin: 11/06/18 09:27 Dose: 650 mg Aspirin (Ecotrin Ec Tab*) 325 mg PO DAILY [facility] Last Admin: 11/06/18 09:13 Dose: 325 mg Atorvastatin Calcium (Lipitor*) 10 mg PO BEDTIME [facility] Last Admin: 11/05/18 20:27 Dose: 10 mg Heparin Sodium (Porcine) (Heparin Vial(*)) 0 units IV .PER PROTOCOL [facility] Sodium Chloride (Ns 0.9% 1000 Ml) 1,000 mls @ 100 mls/hr IV .per rate [facility] Last Admin: 11/06/18 16:17 Dose: 100 mls/hr Melatonin (Melatonin) 3 mg PO BEDTIME PRN PRN Reason: SLEEP Last Admin: 11/06/18 01:01 Dose: 3 mg Metoprolol Tartrate (Lopressor Tab*) 25 mg PO BID [facility] Last Admin: 11/06/18 09:13 Dose: 25 mg Pantoprazole Sodium (Protonix Tab*) 40 mg PO DAILY PRN PRN Reason: HEARTBURN Objective Vital Signs: Temp Pulse Resp BP Pulse Ox 98 F 54 16 124/70 96 11/06/18 11:18 11/06/18 17:00 11/06/18 17:00 11/06/18 17:00 11/06/18 17:00 Laboratory Results: 11/06/18 05:05 11/06/18 05:05 INR (Anticoag Therapy) 1.09 (0.82-1.09) 11/05/18 15:34 APTT 53.3 seconds (26.0-38.0) H 11/06/18 07:05 Total Bilirubin 0.50 mg/dL (0.2-1.0) 11/05/18 15:34 AST 24 U/L (13-39) 11/05/18 15:34 ALT 15 U/L (7-52) 11/05/18 15:34 Alkaline Phosphatase 59 U/L (34-104) 11/05/18 15:34 B-Natriuretic Peptide 153 pg/mL (<=100) H 11/05/18 15:34 Total Protein 7.7 g/dL (6.4-8.9) 11/05/18 15:34 Albumin 4.0 g/dL (3.2-5.2) 11/05/18 15:34 Globulin 3.7 g/dL (2-4) 11/05/18 15:34 Albumin/Globulin Ratio 1.1 (1-3) 11/05/18 15:34 Triglycerides 74 mg/dL 11/06/18 05:05 Cholesterol 105 mg/dL 11/06/18 05:05 LDL Cholesterol 53 mg/dL 11/06/18 05:05 HDL Cholesterol 37.0 mg/dL 11/06/18 05:05 TSH 2.44 mcIU/mL (0.34-5.60) 11/05/18 15:34 11/05/18 11/05/18 11/05/18 15:34 18:56 21:43 Troponin I 0.00 0.01 0.02 Assessment/Plan Points of Discussion: discussed with patient, , Meagan, and Dr. Nagel and Dr. Woodard. Moderate lesion in NONDominant RCA. Etiology of VT uncertain: ?ischemia, ? recent cardiomyopathy (recent respiratory illness) ? afib induced lv dysfunction. Plan: beta na as tolerated (had low bp and bradycardia with lopressor 25 mg) will reduce metoprolol to 12.5 mg bid. will repeat stress nuclear on beta na if he remains free of arrhythmia, will consider d/c on beta na with EP followup and eps possible cardiac MRI at some point. pt agrees with plan. more than 45 minutes discussion and coordinating care beyond 25 min followup visit.
[2018-11-06] MEDS ORDERED: methylPREDNISolone SOD 40 MG* 1 ML VIAL IV ONE (10:00)
[2018-11-06] MEDS ORDERED: NS 0.9% 1000 ML** 1,000 ML IV SCH ×2 (12:00→17:45)
[2018-11-06 13:16] LABS: CRP High Sensitivity 3.38 mg/L (<2.00)
[2018-11-06] MEDS ORDERED: Heparin(*) 1000 UNIT/ML 10 ML VIAL CATH LAB IV ONE (14:24)
[2018-11-06] MEDS ORDERED: fentaNYL* 50 MCG/ML 2 ML VIAL (100 MCG VIAL) ONE (14:24)
[2018-11-06] MEDS ORDERED: Midazolam* 1 MG/ML 5 ML VIAL (5 MG) ONE (14:24)
[2018-11-06] MEDS ORDERED: nitroGLYCERIN DRIP* 25,000 MCG/250 ML BTL ONE (14:25)
[2018-11-06] MEDS ORDERED: Lidocaine 1% INJ* 10 MG/ML 30 ML SDV ONE (14:25)
[2018-11-06] MEDS ORDERED: VERAPAMIL 2.5 MG/ML 2 ML VIAL ** 5 mg/2 ml ONE (14:25)
[2018-11-06] MEDS ORDERED: Iohexol 350 (CONTRAST) 200 ML MDV IV ONE ×2 (14:25→14:26)
[2018-11-06] MEDS ORDERED: Heparin 2 UNITS/ML IVPREMIX* 2,000 UNIT/1,000 ML BAG IV ONE (14:26)
--- NOTE | 2018-11-06 17:30 | PN ---
Subjective Date of Service: 11/06/18 Interval History: Patient seen and examined. Pending cardiac cath this am. Feeling well, currently in RSR. No ectopy. Extensive discussion with patient and his regarding plan. He denies chest pain, no SOB, no diaphoresis, no palpitations, no further complaints. Objective Active Medications: Acetaminophen (Tylenol Tab*) 650 mg PO Q4H PRN PRN Reason: FEVER/PAIN Last Admin: 11/06/18 09:27 Dose: 650 mg Aspirin (Ecotrin Ec Tab*) 325 mg PO DAILY ANYA Last Admin: 11/06/18 09:13 Dose: 325 mg Atorvastatin Calcium (Lipitor*) 10 mg PO BEDTIME ANYA Last Admin: 11/05/18 20:27 Dose: 10 mg Heparin Sodium (Porcine) (Heparin Vial(*)) 0 units IV .PER PROTOCOL ANYA Diltiazem/Dextrose (Cardizem Iv D5w Bag* Premix) 125 mg in 125 mls @ 10 mls/hr IV .INITIAL RATE ANYA; Protocol Sodium Chloride (Ns 0.9% 1000 Ml) 1,000 mls @ 100 mls/hr IV .per rate [facility] Last Admin: 11/06/18 16:17 Dose: 100 mls/hr Melatonin (Melatonin) 3 mg PO BEDTIME PRN PRN Reason: SLEEP Last Admin: 11/06/18 01:01 Dose: 3 mg Metoprolol Tartrate (Lopressor Tab*) 25 mg PO BID [facility] Last Admin: 11/06/18 09:13 Dose: 25 mg Pantoprazole Sodium (Protonix Tab*) 40 mg PO DAILY PRN PRN Reason: HEARTBURN Vital Signs - 8 hr 11/06/18 11/06/18 11/06/18 10:00 11:00 11:18 Temperature 98 F Pulse Rate 59 52 Respiratory 21 15 Rate Blood Pressure (mmHg) O2 Sat by Pulse 98 98 Oximetry 11/06/18 11/06/18 11/06/18 12:00 12:01 12:06 Temperature Pulse Rate 53 53 Respiratory 17 19 15 Rate Blood Pressure 87/68 (mmHg) O2 Sat by Pulse 98 98 Oximetry 11/06/18 11/06/18 11/06/18 12:18 13:00 13:01 Temperature Pulse Rate 53 57 54 Respiratory 17 20 17 Rate Blood Pressure 104/44 115/91 (mmHg) O2 Sat by Pulse 97 98 98 Oximetry 11/06/18 11/06/18 11/06/18 14:00 14:01 15:56 Temperature Pulse Rate 55 53 Respiratory 13 13 20 Rate Blood Pressure 95/78 (mmHg) O2 Sat by Pulse 97 98 Oximetry 11/06/18 11/06/18 11/06/18 15:59 16:00 16:02 Temperature Pulse Rate 57 57 60 Respiratory 21 16 23 Rate Blood Pressure 130/71 127/71 (mmHg) O2 Sat by Pulse 96 96 95 Oximetry 11/06/18 17:00 Temperature Pulse Rate 54 Respiratory 39 Rate Blood Pressure 124/70 (mmHg) O2 Sat by Pulse 96 Oximetry Oxygen Devices in Use Now: None Appearance: alert, NAD Eyes: No Scleral Icterus, PERRLA Ears/Nose/Mouth/Throat: NL Teeth, Lips, Gums Neck: NL Appearance and Movements; NL JVP, Trachea Midline Respiratory: Symmetrical Chest Expansion and Respiratory Effort, Clear to Auscultation Cardiovascular: NL Sounds; No Murmurs; No JVD, RRR Abdominal: NL Sounds; No Tenderness; No Distention Extremities: No Edema, No Clubbing, Cyanosis Skin: No Rash or Ulcers Neurological: Alert and Oriented x 3 Nutrition: - - NPO Result Diagrams: 11/06/18 05:05 11/06/18 05:05 Microbiology and Other Data: Microbiology 11/06/18 10:35 Stool Occult Blood (MATEUSZ) - Final Stool 11/05/18 18:39 Nasal Screen MRSA (PCR) - Final Nasal Mrsa Not Detected Assess/Plan/Problems-Billing Assessment: This is a 68 year old male with history of CAD that presented to the ED at the recommendation of Dr. Blackmon after having Vtach post stress test. - Patient Problems (1) V-tach Code(s): I47.2 - VENTRICULAR TACHYCARDIA SNOMED Code(s): 78631168 Comment: - Plans for cardiac cath today with Dr. Nagel, on heparin drip - Had transient afib and was placed on cardizem drip for rate control, now off - Defer to cardiology regarding oral anticoagulation - Continue metoprolol, ASA - POC as per cardiology, appreciate further recommendations after procedure today (2) CAD (coronary artery disease) Code(s): I25.10 - ATHSCL HEART DISEASE OF [place] CORONARY ARTERY W/O ANG PCTRS SNOMED Code(s): 91731759 Comment: - Occlusion to LAD in 2011 with stent - Continue statin (3) DVT prophylaxis Code(s): Z29.9 - ENCOUNTER FOR PROPHYLACTIC MEASURES, UNSPECIFIED SNOMED Code( s): 761306576 Comment: - On heparin drip (4) Full code status Code(s): Z78.9 - OTHER SPECIFIED HEALTH STATUS SNOMED Code(s): 843148901 Status and Disposition: Inpatient, dispo to home when medically stable
[2018-11-06] MEDS: Metoprolol Tartrate TAB* 25 MG PO SCH (21:04)
[2018-11-06] MEDS: Atorvastatin* 10 MG TAB PO SCH (21:04)
[2018-11-07 05:07] LABS: EGFR African American 124.9 (>60); EGFR Non-African American 103.3 (>60)
[2018-11-07] MEDS: Metoprolol Tartrate TAB* 25 MG PO SCH ×2 (08:48→10:09)
[2018-11-07] MEDS: Aspirin EC TAB* 325 MG PO SCH (12:27)
[2018-11-07 13:19] VITALS: BP 122/76
--- NOTE | 2018-11-07 15:27 | CATH ---
CC: Dr. Borrego; Dr. Blackmon CATHETERIZATION REPORT: DATE OF PROCEDURE: 11/06/18 PRIMARY CARE PHYSICIAN: Dr. Borrego. NITROGLYCERIN SEPARATOR OPERATOR: Dr. Blackmon. PROCEDURES: Right radial artery access, bilateral selective coronary cineangiography, left heart catheterization, left ventriculography. HISTORY: A 68-year-old male with LAD stenting in 2011 with a 2.5 x 18 drug- eluting stent in the proximal LAD based on abnormal FFR, it was postdilated at that time with a larger balloon. He now presents with an abnormal stress test with ST depression, immediately after exercise a burst of nonsustained VT followed by rapid atrial fibrillation and an anteroapical regional wall motion abnormality. In the past month, he has had a viral syndrome. There is no prior history of arrhythmia. PROCEDURE ACCESS: Right radial artery sheath 6F slender. DIAGNOSTIC CATHETER: 5F TIG4, 5F pigtail. MEDICATIONS: 1. Subcu lidocaine. 2. IV Versed. 3. IV fentanyl. 4. Nitroglycerin 300 mcg. 5. Verapamil 3 mg IA. No heparin given as he was on IV heparin drip. HEMODYNAMICS: Initial BP 134/73, LV 128/7-23, no aortic valve gradient on pullback. ANGIOGRAPHY: Left main: The left main is short, without stenosis. LAD: The LAD is heavily calcified, has a previously placed proximal stent, there is no in-stent restenosis or stenosis. The LAD has fairly diffuse scattered nonobstructive plaquing. Circumflex: The circumflex is dominant, large with a moderate ramus, large marginal, large posterior lateral, and a large PDA. The circumflex has scattered mild luminal irregularity without significant stenosis. RCA: The RCA was nondominant, small, supplies only RV branches, there is a short proximal stenosis traversing the origin of the SA luciano artery, appears to be approximately 60% to 70% stenosis; however, there is some bridging right ventricular free wall branch collateral across the lesion. LV gram: There is ventricular ectopy during the injection but grossly there appears to be mild global hypokinesis with an estimated LVEF of 45% to 50% with less post extrasystolic accentuation than I would expect. This raises the possibility of an underlying cardiomyopathy. CONCLUSION: 1. Single-vessel disease of a nondominant small right coronary artery, no in- stent restenosis or stenosis of the LAD stent. 2. Low normal LVEF with ventricular ectopy, consider possibility of cardiomyopathy. 3. Elevated end-diastolic pressure raising the possibility of diastolic dysfunction. 4. Successful right radial artery access. [id number]/[facility] #: [id number] [place]
--- NOTE | 2018-11-07 23:17 | DS ---
CC: Dr. David Borrego; Dr. Hal Blackmon, Cardiology * DISCHARGE SUMMARY: DATE OF ADMISSION: 11/05/18 DATE OF DISCHARGE: 11/07/18 PRIMARY CARE PROVIDER: Dr. David Borrego CARDIOLOGY: Dr. Hal Blackmon MY ATTENDING FOR TODAY: Dr. Lolis Purcell.* (DICTATED BY RIC PEÑA NP) HOSPITAL COURSE: Please refer to the admitting H and P on 11/05/18, but in short, Mr. Vann is a 68-year-old male patient with a past medical history of diffuse coronary artery disease with stenting in 2011. He also has hypertension , hyperlipidemia with mild mitral regurgitation. The patient went to his balance bridge inspector on the 11/05/18 for a stress test in the office. During his stress test, he was noted to have some posttesting palpitations, what was also noted was some fluttering and a nervous feeling in his chest that persisted for 1 hour. Cardiology has noted at that time that he had wide complex tachycardia suggestive of ventricular tachycardia and then potentially alternating with atrial fibrillation. The patient was promptly referred to the emergency department for further evaluation and was admitted. Plan at that point was to have the patient admitted potentially for cardiac catheterization given his presentation. In the ED, EKG was showing AFib alternating with V-tach with a rate of 170. Chest x-ray was normal. He was given diltiazem 50 mg IV push and then started on diltiazem drip. He received normal saline infusion 2 L bolus. He was noted to have some macrocytic anemia, but otherwise no further alterations in his laboratories. His troponin was negative and did not have any gross ST segment elevations. He was placed on a heparin drip. Dr. Nagel saw the patient as well and planned cardiac catheterization for the next day. The patient did spontaneously convert after being on the diltiazem drip for a short time and he remained in regular sinus rhythm thereafter. He was started on beta-na with metoprolol 12.5 mg b.i.d. and was admitted to ICU for close observation. The patient underwent cardiac catheterization with Dr. Nagel. Per the report by Dr. Nagel, the patient has single vessel disease with a nondominant small right coronary artery. No in-stent restenosis or stenosis of the LAD stent. He had a low normal left ventricular EF with ventricular ectopy, consider possibility of cardiomyopathy. Elevated end diastolic pressure raising the possibility of diastolic dysfunction and successful right radial artery access. Based on these findings, there was obviously no stenting performed. The patient was sent for a nuclear stress test on 11/07/18. During his stress test, he did get to approximately 90% of maximum predicted heart rate. He did not have any ectopy during his exam. The nuclear images showed a small area of anterolateral defect which appeared fixed. No evidence of reversible changes noted. Ejection fraction of 59%. Overall assessment is low risk. I did have discussion with Dr. Hal Blackmon about these findings. He recommends that the patient remain on beta-na. Continue his statin and his aspirin. Made arrangements for an event monitor to be picked up at [facility] today and then continue cardiac followup. The patient was medically stabilized for discharge on 11/07/18. The patient was in stable condition. He was discharged in the care of his . All questions were answered and the patient stated understanding of his discharge instructions, followups and medications. DISCHARGE DIAGNOSES: 1. Ventricular tachycardia alternating with atrial fibrillation. 2. History of diffuse coronary artery disease. 3. Hyperlipidemia. DISCHARGE MEDICATIONS: Include: 1. Metoprolol tartrate 12.5 mg 1 tab p.o. q.12 hours. 2. Melatonin 5 mg at bedtime as needed. 3. Aspirin 325 mg p.o. daily. 4. Lipitor 10 mg p.o. in the evening. 5. Protonix 40 mg p.o. daily. REVIEW OF SYSTEMS: On the day of discharge, the patient denied any fever, fatigue, or chills. He has no headache, no shortness of breath, no chest pain, no abdominal pain, no nausea, no vomiting. No arthralgias, no myalgias and no further constitutional complaints. PHYSICAL EXAMINATION: Reveals a very well-appearing gentleman of his stated age , in no acute distress. His vital signs are blood pressure 122/76, heart rate 60, respiratory rate 14, O2 saturation 96% on room air with a temperature of 98.0. HEENT: The patient is atraumatic, normocephalic. PERRLA. Nonicteric sclerae. Oral mucosa is moist. Tongue is midline. Neck is supple, nontender. No JVD noted. No carotid bruits auscultated. Cardiovascular: S1, S2 present. No murmurs, gallops, or rubs noted. Rate and rhythm are currently regular to bradycardiac. Lungs are clear bilaterally to auscultation with no wheezing, rhonchi, or rales. Abdomen is soft, nontender, and nondistended. Positive bowel sounds in all 4 quadrants. No hepatomegaly noted. is deferred. Musculoskeletal: There is no clubbing, no cyanosis, and no edema. He has +2 distal pulses palpable. He has full range of motion and steady gait. Neurologic: Grossly intact with no focal deficits. Psychiatric: Cooperative and appropriate. DIAGNOSTIC STUDIES/LAB DATA: Laboratories: WBC 7.8, RBCs 3.24, hemoglobin 10.7 , hematocrit 31, platelets 196. Sodium 139, potassium 3.7, chloride 108, CO2 27 , BUN 18, creatinine 0.82, GFR is 93.2, glucose 108. Hemoglobin A1c 6.0, lactic acid 0.7. Calcium 8.4, magnesium 2.0. Iron studies: Iron 86, TIBC 346 , percent saturation 25, unsaturated iron binding capacity is less than 331, transferrin 247, ferritin 103.2. Total bilirubin 0.50, AST 24, ALT 15, alkaline phosphatase 59. Troponins 0.00, 0.01, 0.02. High sensitivity C- reactive protein is 3.38. BNP 153. Total protein 7.7, albumin 4.0, globulin 3.7. Triglycerides 74, cholesterol 105, LDL 53, HDL 37, B12 249, folate greater than 20, TSH 2.44. Imaging: Chest x-ray dated 11/05/18 shows no active cardiopulmonary disease. EKG dated 11/06/18 shows regular sinus rhythm. No ectopy. His ST wave changes have currently resolved. DISPOSITION: Again, the patient was discharged to home in stable condition. FOLLOWUPS: The patient was instructed to follow up with his primary care provider, Dr. David Borrego in next 1 to 2 weeks, Dr. Hal Blackmon in next 1 to 2 weeks and to the [facility] today to picker and packer his Holter monitor today. TIME SPENT: Forty minutes in discharge planning. RIC PEÑA NP [id number]/[facility] #: [id number] [place]
== END 2018-11-07 13:50 | disposition home or self-care (01) | DRG 287 ==
LOC: ED 15:00 → ICU 17:14
PROVIDERS: ADMIT Internal Medicine; ATTEND Internal Medicine
PROC: B2111ZZ Fluoroscopy of Multiple Coronary Arteries using Low Osmolar Contrast (ICD-10-PCS; principal; 2018-11-07)
PROC: B2151ZZ Fluoroscopy of Left Heart using Low Osmolar Contrast (ICD-10-PCS; 2018-11-07)
PROC: 4A023N7 Measurement of Cardiac Sampling and Pressure, Left Heart, Percutaneous Approach (ICD-10-PCS; 2018-11-07)
DX: I47.2 Ventricular tachycardia (principal); E87.2 Acidosis; I25.10 Atherosclerotic heart disease of native coronary artery without angina pectoris; I10 Essential (primary) hypertension; E78.5 Hyperlipidemia, unspecified; I34.0 Nonrheumatic mitral (valve) insufficiency; D53.9 Nutritional anemia, unspecified; E78.00 Pure hypercholesterolemia, unspecified; I48.0 Paroxysmal atrial fibrillation; R94.39 Abnormal result of other cardiovascular function study; T78.3XXA Angioneurotic edema, initial encounter; Y92.239 Unspecified place in hospital as the place of occurrence of the external cause; K21.9 Gastro-esophageal reflux disease without esophagitis; Z72.89 Other problems related to lifestyle; Z79.82 Long term (current) use of aspirin; I25.2 Old myocardial infarction; Z95.5 Presence of coronary angioplasty implant and graft; Z85.828 Personal history of other malignant neoplasm of skin; Z91.013 Allergy to seafood; Z83.3 Family history of diabetes mellitus; Z82.49 Family history of ischemic heart disease and other diseases of the circulatory system; Z80.9 Family history of malignant neoplasm, unspecified; Z82.0 Family history of epilepsy and other diseases of the nervous system; Z82.3 Family history of stroke
CPT/HCPCS: 36415; 71045; 78452; 80048; 80053; 80061; 82270; 82565; 82607; 82728; 82746; 83036; 83540; 83550; 83605; 83735; 83880; 84443; 84484; 84520; 85025; 85610; 85730; 86141; 87641; 93005; 93017; 93458; 94762; 99156; 99157; 99285; A9270-GY; A9502; J1644; J2250; J2920; J3010; J3490

== ENCOUNTER 2023-10-10 05:57 | Observation (INO) ==
[2023-10-10] MEDS ORDERED: Lidocaine 2% PF 5 ML VIAL ONE (06:18)
[2023-10-10] MEDS ORDERED: Ondansetron 4 mg VIAL 2 MG/ML 2 ml VIAL ONE (06:18)
[2023-10-10] MEDS ORDERED: Midazolam 2 mg/2 ml VIAL 1 mg/ml 2 ml VIAL (2 mg) ONE ×2 (06:18→07:25)
[2023-10-10] MEDS ORDERED: Dexamethasone IV 4 MG/ML VIAL 1 ml VIAL ONE (06:18)
[2023-10-10] MEDS ORDERED: fentaNYL 250 mcg/5 ml 50 MCG/ML 5 ml VIAL (250 MCG) ONE (06:19)
[2023-10-10] MEDS ORDERED: Famotidine IV 10 MG/ML 2 ml VIAL (20 mg) ONE (06:42)
[2023-10-10 06:56] LABS: Rapid COVID-19 Molecular Undetected (Undetected)
[2023-10-10] MEDS ORDERED: ROPIVACAINE 5 MG/ML 30 ML BTL (0.5%) ONE (06:57)
[2023-10-10] MEDS: Famotidine IV 10 MG/ML 2 ml VIAL (20 mg) IV ONE (07:05)
[2023-10-10] MEDS ORDERED: ceFAZolin 2 GM PREMIX 2 GM/50 ML BAG ONE (07:12)
[2023-10-10] MEDS ORDERED: Tranexamic Acid 1 GM/100ML BAG 2,000 MG/200 ML BAG IV ONE (07:12)
[2023-10-10] MEDS ORDERED: fentaNYL 100 mcg/2 ml 50 MCG/ML VIAL IV PRN (07:23)
[2023-10-10] MEDS ORDERED: Naloxone 0.4 mg VIAL 0.4 mg/ml 1 ml VIAL IV PRN (07:23)
[2023-10-10] MEDS ORDERED: Prochlorperazine 5 mg/ml 2 ml VIAL (10 mg) IV PRN (07:23)
[2023-10-10] MEDS ORDERED: Propofol 10 MG/ML 20 ML BTL ONE (07:23)
[2023-10-10] MEDS ORDERED: Rocuronium 50 mg VIAL 10 mg/ml 5 ml VIAL (50 mg) ONE (07:23)
[2023-10-10 07:25] LABS: INR 1.13 (0.83-1.13)
[2023-10-10] MEDS ORDERED: Magnesium Hydroxide LIQ 30 ML UDC PO PRN (08:09)
[2023-10-10] MEDS ORDERED: Ondansetron ODT 4 mg TAB 4 MG TAB PO PRN (08:09)
[2023-10-10] MEDS ORDERED: Lactulose 30 ml UDC PO PRN (08:09)
[2023-10-10] MEDS ORDERED: Ondansetron 4 mg VIAL 2 MG/ML 2 ml VIAL IV PRN (08:09)
[2023-10-10] MEDS ORDERED: Calcium Carb (TUMS) 500 mg CHEW TAB PO PRN (08:09)
[2023-10-10] MEDS ORDERED: Morphine 2 MG/ML SYRINGE IV PRN (08:09)
[2023-10-10] MEDS ORDERED: HYDROmorphone 0.5 MG/0.5 ML SYRINGE ONE (09:33)
[2023-10-10] MEDS: Buffered Lidocaine 1% SYRIN 1 ml INTRADERM ONE (09:51)
[2023-10-10] MEDS: Dexamethasone IV 4 MG/ML VIAL 1 ml VIAL IV SLOW PU ONE (09:51)
[2023-10-10] MEDS: Lactated Ringers 1000 ml BAG 1,000 ML IV SCH ×2 (09:52→11:19)
[2023-10-10] MEDS: Magnesium Hydroxide LIQ 30 ML UDC PO SCH (09:54)
[2023-10-10] MEDS: Vitamin THERAPEUTIC TAB PO SCH (09:55)
[2023-10-10] MEDS: ceFAZolin 2 GM in NS PREMIX 2 GM/100 ML BAG IVPB SCH (11:19)
[2023-10-10] MEDS: ceFAZolin 2 GM PREMIX 2 GM/50 ML BAG IVPB SCH (16:45)
[2023-10-11 06:51] LABS: Hematocrit 24.8 % (38-53); Hemoglobin 8.9 g/dL (13.2-16.3); Mean Platelet Volume 9.6 fL (7.5-11.2); Platelet Count 133 10^3/uL (150-450)
[2023-10-11 08:19] LABS: Creatinine, Serum 0.93 mg/dL (0.67-1.17); Potassium 4.3 mmol/L (3.5-5.0); eGFR CKD-EPI 86.2 (>60)
[2023-10-11] MEDS: Aspirin EC 81 mg TAB.EC (enteric coated) PO SCH (09:04)
[2023-10-11 10:51] VITALS: BP 135/95
== END 2023-10-11 12:30 | disposition home or self-care (01) ==
LOC: OR 05:57 → SSU 05:57
PROVIDERS: ADMIT Orthopaedic Surgery Adult Reconstructive Orthopaedic Surgery; ATTEND Orthopaedic Surgery Adult Reconstructive Orthopaedic Surgery

== ENCOUNTER 2023-10-16 10:10 | Inpatient (IN) ==
[2023-10-16] MEDS: Pantoprazole VIAL 40 MG VIAL IV ONE (10:44)
[2023-10-16 10:46] LABS: ABS Eosinophils 0.1 10^3/uL (0.0-0.5); ABS Lymphocytes 0.8 10^3/uL (1.0-4.8); ABS Neutrophils 11.5 10^3/uL (1.5-7.6); Eosinophil % 0.5 %; Hematocrit 21.3 % (38-53); Hemoglobin 7.3 g/dL (13.2-16.3); Lymphocyte % 6.2 %; Mean Corpuscular Hemoglobin 34.9 pg (27-33); Mean Corpuscular Hgb Conc 34.5 g/dL (31-36); Mean Corpuscular Volume 101.2 fL (80-97); Mean Platelet Volume 9.1 fL (7.5-11.2); Platelet Count 194 10^3/uL (150-450); Red Cell Distribution Width 12.9 % (12-17); White Blood Count 13.4 10^3/uL (3.6-10.2)
[2023-10-16 11:04] LABS: Activated Partial Thrombo Time 27.9 seconds (26.0-38.0); INR 1.34 (0.83-1.13)
[2023-10-16 11:21] LABS: Albumin 3.4 g/dL (3.2-5.2); Albumin/Globulin Ratio 1.2 (1-3); Calcium 8.1 mg/dL (8.6-10.3); Creatinine, Serum 0.82 mg/dL (0.67-1.17); Globulin 2.9 g/dL (2-4); Magnesium 1.8 mg/dL (1.9-2.7); Potassium 4.8 mmol/L (3.5-5.0); Total Bilirubin 0.8 mg/dL (0.2-1.0); Total Protein 6.3 g/dL (6.4-8.9); eGFR CKD-EPI 92.2 (>60)
[2023-10-16] MEDS: Pantoprazole 80 mg in NS BAG 80 MG/250 ML BAG IV ONE (11:41)
[2023-10-16] MEDS: Lactated Ringers 1000 ml BAG 1,000 ML IV ONE (11:52)
[2023-10-16] MEDS: Iohexol 350 (CONTRAST) 500 ML MDV IV ONE (12:30)
[2023-10-16] MEDS: Erythromycin Lactobionate IV 250 MG in NS 0.9% 100 ml BAG 100 ML IVPB ONE (12:55)
[2023-10-16] MEDS: Acetaminophen IV 1 GM/100ML 1,000 MG/100 ML BAG IV ONE (13:39)
[2023-10-16] MEDS ORDERED: Ondansetron 4 mg VIAL 2 MG/ML 2 ml VIAL IV PRN (14:20)
[2023-10-16] MEDS ORDERED: fentaNYL 100 mcg/2 ml 50 MCG/ML VIAL ONE (14:26)
[2023-10-16] MEDS ORDERED: Midazolam 10 mg/10 ml VIAL 1 mg/ml 10 ml VIAL (10 mg) ONE (14:26)
[2023-10-16 14:44] LABS: High Sensitivity Troponin 1 Hr 30 pg/mL (<20)
[2023-10-16 18:29] LABS: Hematocrit 22.5 % (38-53); Hemoglobin 7.4 g/dL (13.2-16.3)
[2023-10-17 03:30] LABS: ABS Eosinophils 0.2 10^3/uL (0.0-0.5); ABS Lymphocytes 1.4 10^3/uL (1.0-4.8); ABS Monocytes 0.9 10^3/uL (0.0-1.1); ABS Neutrophils 5.4 10^3/uL (1.5-7.6); ABS Nucleated RBC 0.01 10^3/ul; Eosinophil % 1.9 %; Hematocrit 19.6 % (38-53); Hemoglobin 6.9 g/dL (13.2-16.3); Lymphocyte % 17.4 %; Mean Corpuscular Hgb Conc 35.3 g/dL (31-36); Mean Corpuscular Volume 96.3 fL (80-97); Mean Platelet Volume 8.8 fL (7.5-11.2); Nucleated Red Blood Cells % 0.1 %/100WBC (0.0-0.8); Platelet Count 172 10^3/uL (150-450); Red Blood Count 2.03 10^6/uL (4.06-5.63); Red Cell Distribution Width 15.7 % (12-17); White Blood Count 7.9 10^3/uL (3.6-10.2)
[2023-10-17 03:53] LABS: Calcium 7.7 mg/dL (8.6-10.3); Creatinine, Serum 0.74 mg/dL (0.67-1.17); eGFR CKD-EPI 95.1 (>60)
[2023-10-17] MEDS ORDERED: Pantoprazole VIAL 40 MG VIAL IV SCH (09:00)
[2023-10-17] MEDS: Pantoprazole VIAL 40 MG VIAL IV SCH (09:06)
[2023-10-17 12:15] LABS: Hematocrit 23.7 % (38-53); Hemoglobin 8.3 g/dL (13.2-16.3)
[2023-10-18 07:14] LABS: Hematocrit 22.7 % (38-53); Mean Corpuscular Hemoglobin 33.3 pg (27-33); Mean Corpuscular Hgb Conc 35.2 g/dL (31-36); Mean Corpuscular Volume 94.6 fL (80-97); Mean Platelet Volume 8.6 fL (7.5-11.2); Platelet Count 189 10^3/uL (150-450); Red Cell Distribution Width 17.3 % (12-17); White Blood Count 6.6 10^3/uL (3.6-10.2)
[2023-10-18 14:08] VITALS: BP 105/56
[2023-10-22 09:46] LABS: Helicobacter pylori Result Not Detected; Specimen Source STOOL
== END 2023-10-18 18:13 | disposition home or self-care (01) | DRG 378 ==
LOC: ED 10:10 → EDHOLD 14:20 → MEDTELE 14:55
PROVIDERS: ADMIT Internal Medicine; ATTEND Internal Medicine